=== PATIENT | female | born 1980 | race Caucasian/White ===

== ENCOUNTER → 2017-02-02 | Outpatient (CLI) | payer BC ==
--- NOTE | 2017-02-03 13:34 | MM ---
Reason for exam: screening (asymptomatic). Last mammogram was performed 6 years and 8 months ago. History: Patient had first child at age 33. Taking hormonal contraceptives for 5 years beginning at age 17. Physical Findings: A clinical breast exam by your physician is recommended on an annual basis and results should be correlated with mammographic findings. MG Screening Mammo w CAD Bilateral CC, MLO, and XCCL view(s) were taken. Prior study comparison: June 01, 2010, bilateral diagnostic digital mammog. The breast tissue is extremely dense which could obscure a lesion on mammography. There is no discrete abnormality. No significant changes when compared with prior studies. ASSESSMENT: Negative, BI-RAD 1 RECOMMENDATION: Routine screening mammogram of both breasts at age 40.
== END | disposition home or self-care (01) ==
LOC: RADMAMWWP 15:16
PROVIDERS: ATTEND Family Medicine
DX: Z12.31 Encounter for screening mammogram for malignant neoplasm of breast (principal)

== ENCOUNTER → 2019-10-11 | Outpatient (CLI) | payer BC ==
[2019-10-11 17:07] LABS: Basophils # (A) 0.1 k/uL (0-0.2); Basophils % (A) 1 %; Eosinophils # (A) 0.3 k/uL (0-0.7); Eosinophils % (A) 2 %; HCT 44.8 % (34.0-46.0); HGB 14.5 gm/dL (11.4-16.0); Lymphocytes % (A) 41 %; MCH 30.6 pg (25.0-35.0); MCHC 32.3 g/dL (31.0-37.0); MCV 94.7 fL (80.0-100.0); Mean Platelet Volume 8.4; Monocytes # (A) 0.8 k/uL (0-1.0); Monocytes % (A) 6 %; Neutrophils # (A) 5.6 k/uL (1.3-7.7); Neutrophils % (A) 46 %; Platelet Count 262 k/uL (150-450); RBC 4.73 m/uL (3.80-5.40); RDW 12.4 % (11.5-15.5); WBC 12.2 k/uL (3.8-10.6)
== END | disposition home or self-care (01) ==
LOC: LABPAT 16:46
PROVIDERS: ATTEND Obstetrics & Gynecology
DX: Z01.812 Encounter for preprocedural laboratory examination (principal); N93.8 Other specified abnormal uterine and vaginal bleeding
CPT/HCPCS: 85025

== ENCOUNTER 2019-10-16 06:26 | Day surgery (SDC) | payer BC ==
[2019-10-12 12:01] VITALS: BMI 18.6
[~2019-10-16 06:26] MED LIST: DEXAMETHASONE SOD PHOSPHATE 10 MG/ML 1 ML VIAL IV ONE; LACTATED RINGERS 1,000 ML IV SCH; LIDOCAINE 1% 20 ML VIAL (10MG/ML) FOR IV START INTRADERMA PRN; Pre Op ABX Message 1 EACH MISC MISCELLANE ONE; SCOPOLAMINE 1.5MG/72HR PATCH TRANSDERM ONE
[2019-10-16] MEDS: ONDANSETRON 4 MG/2 ML VIAL IVP ONE ×2 (07:00→08:32)
[2019-10-16] MEDS ORDERED: PROPOFOL 10 MG/ML 20 ML VIAL IV ONE (07:20)
[2019-10-16] MEDS ORDERED: fentaNYL (PF) 50 MCG/ML 2 ML AMP ONE (07:20)
[2019-10-16] MEDS ORDERED: KETOROLAC 30 MG/ML 1 ML VIAL ONE (07:20)
[2019-10-16] MEDS ORDERED: MIDAZOLAM 2 MG/2 ML VIAL ONE (07:20)
[2019-10-16] MEDS ORDERED: LIDOCAINE 1% INJ 10MG/ML (20 ML MDV) ONE (07:20)
[2019-10-16] MEDS ORDERED: LIDOCAINE 1%-EPI 1:100,000 20 ML VIAL SQ ONE (07:47)
--- NOTE | 2019-10-16 08:07 | P.OP ---
Date of Procedure: 10/16/19 Preoperative Diagnosis: Menometrorrhagia Postoperative Diagnosis: Same Procedure(s) Performed: Diagnostic hysteroscopy and NovaSure endometrial ablation Anesthesia: MAC Surgeon: Amrita Aleman Estimated Blood Loss (ml): 5 IV fluids (ml): 400 Urine output (ml): 10 Pathology: none sent Condition: stable Disposition: PACU Operative Findings: Normal intrauterine cavity with no gross intracavitary lesions noted. Description of Procedure: After the patient and her were met in the preoperative holding area and all questions were answered, she was taken to the operating room where anesthetic was administered without incident. Appropriate timeout procedure was undertaken. She was positioned, prepped and draped in the dorsal lithotomy position. Bladder was drained for a scant amount of clear urine. Speculum was placed in the vagina and the cervix was grasped anteriorly with a single-tooth tenaculum. Paracervical block with lidocaine plus epinephrine was placed. The uterus was sounded to 8 cm. The cervix was sequentially dilated to allow for passage of the diagnostic hysteroscope. The hysteroscope was introduced and the cavity was inspected. There was moderate amount of clot and debris. The hysteroscope was removed and the cervix was further dilated to allow for passage of the NovaSure ablation device. The device was inserted with a cavity length of 4.5 cm and a width of 3.6 cm. The cavity assessment test was passed. The device was enabled for a treatment cycle of 80 seconds with a power of 89 W. Following cessation of the treatment cycle the device was removed. The hysteroscope was reintroduced and complete desiccation of the endometrium was appreciated. Instruments were then removed. The cervix was observed and no active bleeding was noted. Speculum was removed. Patient was awoken from anesthetic and transported recovery area in stable condition. All counts reported to me as correct.
[2019-10-16 08:15] VITALS: TEMP 97.5
[2019-10-16] MEDS: HYDROmorphone 0.5 MG/0.5 ML SYRINGE IVP PRN ×2 (08:34→08:40)
[2019-10-16] MEDS ORDERED: SCOPOLAMINE 1.5MG/72HR PATCH TRANSDERM ONE (09:21)
[2019-10-16] MEDS ORDERED: hydrALAZINE HCL 20 MG/ML 1 ML VIAL IVP ONE (10:25)
[2019-10-16 11:04] VITALS: BP 146/93; PULSE 94; RESP 16
== END 2019-10-16 11:13 | disposition home or self-care (01) ==
LOC: OR 06:26
PROVIDERS: ATTEND Obstetrics & Gynecology
DX: N92.1 Excessive and frequent menstruation with irregular cycle (principal); N93.8 Other specified abnormal uterine and vaginal bleeding; Z79.899 Other long term (current) drug therapy; F41.9 Anxiety disorder, unspecified; F32.9 Major depressive disorder, single episode, unspecified; K58.9 Irritable bowel syndrome, unspecified; E73.9 Lactose intolerance, unspecified; Z87.42 Personal history of other diseases of the female genital tract; Z83.3 Family history of diabetes mellitus; F17.210 Nicotine dependence, cigarettes, uncomplicated
CPT/HCPCS: 81025; 58563; J2250; J0360; J1100; J2405; J2001; J3010; J1885; J2704; J1170

== ENCOUNTER → 2020-05-19 | Outpatient (CLI) | payer BC | END | disposition home or self-care (01) | LOC: LABWHC1 14:44 | PROVIDERS: ATTEND Family Medicine | DX: R50.9 Fever, unspecified (principal); R11.0 Nausea; R07.89 Other chest pain | CPT/HCPCS: U0003; C9803 ==

== ENCOUNTER 2022-07-17 09:12 | Observation (INO) | payer BC ==
[2022-07-17] MEDS ORDERED: ONDANSETRON 4 MG/2 ML VIAL IVP STA (09:43)
[2022-07-17] MEDS ORDERED: MORPHINE SULFATE 2 MG/ML SYRINGE IVP STA ×2 (09:43→11:36)
[2022-07-17] MEDS ORDERED: KETOROLAC 15 MG/ML 1 ML VIAL IVP STA (09:43)
[2022-07-17] MEDS ORDERED: SODIUM CHLORIDE 0.9% 1,000 ML IV STA (09:43)
[2022-07-17] MEDS ORDERED: DICYCLOMINE 10 MG/ML 2 ML AMP IM STA (09:52)
[2022-07-17 10:27] LABS: Basophils % (A) 0 %; Eosinophils # (A) 0.1 k/uL (0-0.7); Eosinophils % (A) 0 %; HGB 15.7 gm/dL (11.4-16.0); Lymphocytes # (A) 1.1 k/uL (1.0-4.8); Lymphocytes % (A) 5 %; MCH 31.4 pg (25.0-35.0); MCHC 32.8 g/dL (31.0-37.0); MCV 95.7 fL (80.0-100.0); Mean Platelet Volume 8.8; Monocytes # (A) 0.8 k/uL (0-1.0); Monocytes % (A) 4 %; Neutrophils # (A) 18.5 k/uL (1.3-7.7); Neutrophils % (A) 90 %; Platelet Count 308 k/uL (150-450); RBC 5.02 m/uL (3.80-5.40); RDW 11.9 % (11.5-15.5); WBC 20.6 k/uL (3.8-10.6)
--- NOTE | 2022-07-17 10:29 | ED ---
Abdominal Pain HPI - General Chief Complaint: Abdominal Pain Stated Complaint: Abd Pain, Vomiting Time Seen by Provider: 07/17/22 09:43 Source: patient, RN notes reviewed Mode of arrival: ambulatory Limitations: no limitations - History of Present Illness Initial Comments: This is a 41-year-old female who presents to the emergency department for abdominal pain that began last night. The abdominal pain is described as being around the umbilicus. States that when the pain occurred initially, it improved following a bowel movement. It then returned, and was worse, especially after eating. She has had multiple episodes of nausea and vomiting as well. States that she is worried that she may have a kidney stone, she has a history of kidney stones, and states that she has had severe UTIs that have led to hospital admissions in the past. Denies any fevers, chills, sore throat, cough, dyspnea, chest pain, palpitations, diarrhea, back pain, or headaches. MD Complaint: abdominal pain Onset/Timin -: days(s) Location: periumbilical Associated Symptoms: nausea, vomiting - Related Data Home Medications Medication Instructions Recorded Confirmed Multivitamins, Thera [Multivitamin 1 tab PO DAILY 10/12/19 07/17/22 (formulary)] Cranberry Fruit Extract [Cranberry] 500 mg PO DAILY 07/17/22 07/17/22 Allergies Allergy/AdvReac Type Severity Reaction Status Date / Time No Known Allergies Allergy Verified 07/17/22 15:23 Review of Systems ROS Statement: Those systems with pertinent positive or pertinent negative responses have been documented in the HPI. ROS Other: All systems not noted in ROS Statement are negative. Past Medical History Past Medical History: No Reported History History of Any Multi-Drug Resistant Organisms: None Reported Past Surgical History: Section, Ear Surgery, Tonsillectomy Additional Past Surgical History / Comment(s): Left breast lumpectomy Past Anesthesia/Blood Transfusion Reactions: No Reported Reaction Past Psychological History: No Psychological Hx Reported Smoking Status: Current every day smoker Past Alcohol Use History: Occasional Past Drug Use History: None Reported - Past Family History Father Family Medical History: Diabetes Mellitus General Exam Limitations: no limitations General appearance: alert, in distress Head exam: Present: atraumatic, normocephalic, normal inspection Respiratory exam: Present: normal lung sounds bilaterally. Absent: respiratory distress, wheezes, rales, rhonchi, stridor Cardiovascular Exam: Present: regular rate, normal rhythm, normal heart sounds. Absent: systolic murmur, diastolic murmur, rubs, gallop, clicks GI/Abdominal exam: Present: soft, tenderness (Periumbilical), normal bowel sounds. Absent: distended Back exam: Present: CVA tenderness (R). Absent: CVA tenderness (L) Neurological exam: Present: alert, oriented X3, CN II-XII intact Psychiatric exam: Present: normal affect, normal mood Skin exam: Present: warm, dry, intact, normal color. Absent: rash Course Vital Signs 07/17/22 07/17/22 07/17/22 09:26 11:42 12:31 Temperature 98.1 F Pulse Rate 83 92 Respiratory 20 22 Rate Blood Pressure 140/83 170/100 124/79 O2 Sat by Pulse 100 100 Oximetry 07/17/22 15:27 Temperature Pulse Rate 79 Respiratory 18 Rate Blood Pressure 152/95 O2 Sat by Pulse 100 Oximetry Medical Decision Making - Medical Decision Making This is a 41-year-old female who presents to the emergency department for abdominal pain. Lab work reveals leukocytosis. Computed tomography scan of the abdomen and pelvis reveals a 6 mm stone at the right UVJ and moderate hydroureteronephrosis. I spoke with ED attending, Dr. Velásquez, who states that there is concern for an infected stone given the significantly elevated WBC. She was given 1g of Ceftriaxone and Flomax in the emergency department and started on maintenance fluids. Patient admitted to medicine with urology consult. This case was discussed in detail with the attending ED physician. Presentation, findings, and treatment plan discussed in detail as well. - Lab Data Result diagrams: 07/17/22 10:02 07/17/22 10:02 Lab Results 07/17/22 07/17/22 07/17/22 Range/Units 10:02 10:02 10:02 WBC 20.6 H (3.8-10.6) k/uL RBC 5.02 (3.80-5.40) m/uL Hgb 15.7 (11.4-16.0) gm/dL Hct 48.0 H (34.0-46.0) % MCV 95.7 (80.0-100.0) fL MCH 31.4 (25.0-35.0) pg MCHC 32.8 (31.0-37.0) g/dL RDW 11.9 (11.5-15.5) % Plt Count 308 (150-450) k/uL MPV 8.8 Neutrophils % 90 % Lymphocytes % 5 % Monocytes % 4 % Eosinophils % 0 % Basophils % 0 % Neutrophils # 18.5 H (1.3-7.7) k/uL Lymphocytes # 1.1 (1.0-4.8) k/uL Monocytes # 0.8 (0-1.0) k/uL Eosinophils # 0.1 (0-0.7) k/uL Basophils # 0.0 (0-0.2) k/uL Sodium (137-145) mmol/L Potassium (3.5-5.1) mmol/L Chloride (98-107) mmol/L Carbon Dioxide (22-30) mmol/L Anion Gap mmol/L BUN (7-17) mg/dL Creatinine (0.52-1.04) mg/dL Est GFR (CKD-EPI)AfAm (>60 ml/min/1.73 sqM) Est GFR (CKD-EPI)NonAf (>60 ml/min/1.73 sqM) Glucose (74-99) mg/dL Calcium (8.4-10.2) mg/dL Total Bilirubin (0.2-1.3) mg/dL AST (14-36) U/L ALT (4-34) U/L Alkaline Phosphatase (38-126) U/L Troponin I (0.000-0.034) ng/mL Total Protein (6.3-8.2) g/dL Albumin (3.5-5.0) g/dL Amylase (30-110) U/L Lipase (23-300) U/L Urine Color Red Urine Appearance Cloudy H (Clear) Urine pH 6.0 (5.0-8.0) Ur Specific [place] 1.023 (1.001-1.035) Urine Protein 1+ H (Negative) Urine Glucose (UA) Negative (Negative) Urine Ketones 1+ H (Negative) Urine Blood Large H (Negative) Urine Nitrite Negative (Negative) Urine Bilirubin Negative (Negative) Urine Urobilinogen <2.0 (<2.0) mg/dL Ur Leukocyte Esterase Moderate H (Negative) Urine RBC >182 H (0-5) /hpf Urine WBC 47 H (0-5) /hpf Ur Squamous Epith Cells 2 (0-4) /hpf Urine Bacteria Rare H (None) /hpf Urine Mucus Many H (None) /hpf Urine HCG, Qual Not Detected (Not Detectd) 07/17/22 07/17/22 Range/Units 10:02 10:02 WBC (3.8-10.6) k/uL RBC (3.80-5.40) m/uL Hgb (11.4-16.0) gm/dL Hct (34.0-46.0) % MCV (80.0-100.0) fL MCH (25.0-35.0) pg MCHC (31.0-37.0) g/dL RDW (11.5-15.5) % Plt Count (150-450) k/uL MPV Neutrophils % % Lymphocytes % % Monocytes % % Eosinophils % % Basophils % % Neutrophils # (1.3-7.7) k/uL Lymphocytes # (1.0-4.8) k/uL Monocytes # (0-1.0) k/uL Eosinophils # (0-0.7) k/uL Basophils # (0-0.2) k/uL Sodium 142 (137-145) mmol/L Potassium 3.7 (3.5-5.1) mmol/L Chloride 106 (98-107) mmol/L Carbon Dioxide 26 (22-30) mmol/L Anion Gap 10 mmol/L BUN 17 (7-17) mg/dL Creatinine 0.65 (0.52-1.04) mg/dL Est GFR (CKD-EPI)AfAm >90 (>60 ml/min/1.73 sqM) Est GFR (CKD-EPI)NonAf >90 (>60 ml/min/1.73 sqM) Glucose 133 H (74-99) mg/dL Calcium 9.6 (8.4-10.2) mg/dL Total Bilirubin 0.8 (0.2-1.3) mg/dL AST 28 (14-36) U/L ALT 17 (4-34) U/L Alkaline Phosphatase 99 (38-126) U/L Troponin I <0.012 (0.000-0.034) ng/mL Total Protein 7.3 (6.3-8.2) g/dL Albumin 5.0 (3.5-5.0) g/dL Amylase 72 (30-110) U/L Lipase 60 (23-300) U/L Urine Color Urine Appearance (Clear) Urine pH (5.0-8.0) Ur Specific [place] (1.001-1.035) Urine Protein (Negative) Urine Glucose (UA) (Negative) Urine Ketones (Negative) Urine Blood (Negative) Urine Nitrite (Negative) Urine Bilirubin (Negative) Urine Urobilinogen (<2.0) mg/dL Ur Leukocyte Esterase (Negative) Urine RBC (0-5) /hpf Urine WBC (0-5) /hpf Ur Squamous Epith Cells (0-4) /hpf Urine Bacteria (None) /hpf Urine Mucus (None) /hpf Urine HCG, Qual (Not Detectd) - Radiology Data Radiology results: report reviewed, image reviewed Disposition Clinical Impression: Hydroureteronephrosis, Calculus of ureterovesical junction (UVJ) Disposition: ADMITTED IP TO THIS HOSP
[2022-07-17 10:37] LABS: ALT 17 U/L (4-34); AST 28 U/L (14-36); African American GFR (CKD) >90 (>60 ml/min/1.73 sqM); Alkaline Phosphatase 99 U/L (38-126); Amylase 72 U/L (30-110); Anion Gap 10 mmol/L; Blood Urea Nitrogen 17 mg/dL (7-17); Calcium 9.6 mg/dL (8.4-10.2); Carbon Dioxide 26 mmol/L (22-30); Chloride 106 mmol/L (98-107); Glucose 133 mg/dL (74-99); Lipase 60 U/L (23-300); Non-African American GFR(CKD) >90 (>60 ml/min/1.73 sqM); Potassium 3.7 mmol/L (3.5-5.1); Sodium 142 mmol/L (137-145); Total Bilirubin 0.8 mg/dL (0.2-1.3); Total Protein 7.3 g/dL (6.3-8.2)
[2022-07-17 11:32] LABS: Appearance,Urine Cloudy (Clear); Bacteria,Urine Rare /hpf; Bilirubin,Urine Negative (Negative); Blood,Urine Large (Negative); Color,Urine Red; Glucose,Urine (UA) Negative (Negative); Ketones,Urine 1+ (Negative); Leukocyte Esterase,Urine Moderate (Negative); Mucus,Urine Many /hpf; Nitrite,Urine Negative (Negative); Protein,Urine 1+ (Negative); RBC,Urine >182 /hpf (0-5); Specific Gravity,Urine 1.023 (1.001-1.035); Squamous Epithelial Cell,Urine 2 /hpf (0-4); Urobilinogen,Urine <2.0 mg/dL (<2.0); WBC,Urine 47 /hpf (0-5)
--- NOTE | 2022-07-17 11:40 | CT ---
EXAMINATION TYPE: CT abdomen pelvis w con DATE OF EXAM: 07/17/2022 COMPARISON: None HISTORY: periumbilical pain and N/V CT DLP: 506.1 mGycm CONTRAST: CT scan of the abdomen and pelvis is performed without Oral Contrast and with IV Contrast, patient in jected with 100 mL of Isovue 300. FINDINGS: LUNG BASES-: No visible nodule. No infiltrate. LIVER/GB: No calcified gallstones. No space occupying hepatic lesion. Biliary tree is of normal ca liber. PANCREAS: No inflammation. No distinct mass. SPLEEN: No splenic enlargement. No lesion seen. ADRENALS: No nodule. No thickening. KIDNEYS/BLADDER: Moderate right-sided hydroureteronephrosis secondary to a 6 mm calculus at the right UVJ. Additional 3 mm nonobstructing calculus lower pole right kidney. Small amount of fluid adjacent to the right kidney at its lower pole. No distinct renal mass. Urinary bladder grossly unremarkable . BOWEL: Normal appendix. Normal bowel caliber. No inflammation. GENITAL ORGANS: No gross abnormality. LYMPH NODES: No greater than 1cm abdominal or pelvic lymph nodes are appreciated. AORTA: No significant abnormality. OSSEOUS STRUCTURES: No significant abnormality is seen. OTHER: No significant additional abnormality is seen. IMPRESSION: 1. Moderate right-sided hydroureteronephrosis secondary to a 6 mm calculus at the right UVJ.
[2022-07-17] MEDS ORDERED: ONDANSETRON ODT 4 MG TAB PO STA (12:37)
[2022-07-17] MEDS ORDERED: IBUPROFEN 600 MG TAB PO STA (12:37)
[2022-07-17] MEDS ORDERED: TAMSULOSIN 0.4 MG CAP.ER.24H PO STA (12:37)
[2022-07-17] MEDS ORDERED: cefTRIAXone IN SWFI 1,000 MG/10 ML SYRINGE IVP STA (13:02)
[2022-07-17] MEDS ORDERED: NALOXONE 0.4 MG/ML 1 ML VIAL IV PRN (14:06)
[2022-07-17] MEDS ORDERED: ONDANSETRON 4 MG/2 ML VIAL IVP PRN (14:06)
[2022-07-17] MEDS ORDERED: ACETAMINOPHEN TAB 325 MG TAB PO PRN (14:06)
[2022-07-17] MEDS ORDERED: KETOROLAC 15 MG/ML 1 ML VIAL IVP PRN (14:06)
[2022-07-17] MEDS ORDERED: IBUPROFEN 400 MG TAB PO PRN (14:06)
[2022-07-17] MEDS: SODIUM CHLORIDE 0.9% 1,000 ML IV SCH (15:25)
[2022-07-17] MEDS: HEPARIN SODIUM,PORCINE/PF 5,000 UNIT/0.5 ML SYRINGE SQ SCH (19:41)
[2022-07-17] MEDS: FAMOTIDINE 20 MG TAB PO SCH (19:42)
[2022-07-17] MEDS: MORPHINE SULFATE 2 MG/ML SYRINGE IV PRN (21:53)
--- NOTE | 2022-07-18 00:21 | P.HPIM ---
History of Present Illness H&P Date: 07/17/22 Chief Complaint: Abdominal pain Patient is a 41-year-old male with no significant past medical history presents to ER with complaints of nausea vomiting abdominal pain. Patient states that she started having right flank pain on around 4 AM. Since then patient has been having on and off episodes of nausea and vomiting and also abdominal pain around the umbilical area. Patient has been having multiple episodes of nausea vomiting and presented to ER. No prior history of renal stones. Patient had prior UTI and hospital admission about a year ago. Patient does smoke on daily basis currently. CT of the abdomen pelvis showed moderate right-sided hydronephrosis secondary to 6 mm calculus at the right UVJ Laboratory data showed WBC 20.6 hemoglobin 13.7 and platelets 308 Sodium 142 potassium 3.7 chloride 106 bicarb is 26 BUN 17 and creatinine 0.65 and blood sugar is 133 Urinalysis showed cloudy with 1+ protein 1+ ketones and large blood blood moderate leukocyte esterase with elevated RBCs and WBCs. Squamous epithelial cells 2. Review of Systems Constitutional: Patient denies any fever or chills . no Generalized weakness. Abdomen: Patient is complaining of nausea vomiting and abdominal pain. Right flank pain. Cardiovascular: Patient denies any chest pain or short of breath no palpitations. Respiratory: patient denied any cough . no sputum production. No shortness of breath Neurologic: Patient denied any numbness or tingling headache. Musculoskeletal: Patient denies any complaints of joint swelling or deformity. Skin: Negative Psychiatric: Negative Endocrine: No heat or cold intolerance. No recent weight gain. Genitourinary: No dysuria or hematuria. All other 14 point ROS negative except the above Past Medical History Past Medical History: No Reported History History of Any Multi-Drug Resistant Organisms: None Reported Past Surgical History: Section, Ear Surgery, Tonsillectomy Additional Past Surgical History / Comment(s): Left breast lumpectomy Past Anesthesia/Blood Transfusion Reactions: No Reported Reaction Past Psychological History: No Psychological Hx Reported Smoking Status: Current every day smoker Past Alcohol Use History: Occasional Past Drug Use History: None Reported - Past Family History Father Family Medical History: Diabetes Mellitus Medications and Allergies Home Medications Medication Instructions Recorded Confirmed Type Multivitamins, Thera [Multivitamin 1 tab PO DAILY 10/12/19 07/17/22 History (formulary)] Cranberry Fruit Extract [Cranberry] 500 mg PO DAILY 07/17/22 07/17/22 History Allergies Allergy/AdvReac Type Severity Reaction Status Date / Time No Known Allergies Allergy Verified 07/17/22 15:23 Physical Exam Vitals: Vital Signs Temp Pulse Pulse Resp BP BP Pulse Ox 07/17/22 16:05 99.0 F 85 16 155/87 100 07/17/22 15:27 79 18 152/95 100 07/17/22 12:31 124/79 07/17/22 11:42 92 22 170/100 100 07/17/22 09:26 98.1 F 83 20 140/83 100 Intake and Output 07/17/22 07/17/22 07/17/22 06:59 14:59 22:59 Other: Weight 54.431 kg PHYSICAL EXAMINATION: Patient is lying in the bed comfortably, no acute distress, awake alert and or iented.. HEENT: Normocephalic. Neck is supple. Pupils reactive. Nostrils clear. Oral cavity is moist. Neck reveals no JVD, carotid bruits, or thyromegaly. CHEST EXAMINATION: Trachea is central. Symmetrical expansion. Lung [place] clear to auscultation and percussion. CARDIAC: Normal S1, S2 with no gallops. No murmurs ABDOMEN: Soft. Bowel sounds present. Nontender. No organomegaly. No abdominal bruits. Extremities: reveal no edema. No clubbing or cyanosis Neurologically awake, alert, oriented x3 with well-coordinated movements. No focal deficits noted Skin: No rash or skin lesions. Psychiatric: Coperative. Nonsuicidal, Musculoskeletal: No joint swelling or deformity. Normal range of motion. Results CBC & Chem 7: 07/17/22 10:02 07/17/22 10:02 Labs: Abnormal Lab Results - Last 24 Hours (Table) 07/17/22 07/17/22 07/17/22 Range/Units 10:02 10:02 10:02 WBC 20.6 H (3.8-10.6) k/uL Hct 48.0 H (34.0-46.0) % Neutrophils # 18.5 H (1.3-7.7) k/uL Glucose 133 H (74-99) mg/dL Urine Appearance Cloudy H (Clear) Urine Protein 1+ H (Negative) Urine Ketones 1+ H (Negative) Urine Blood Large H (Negative) Ur Leukocyte Esterase Moderate H (Negative) Urine RBC >182 H (0-5) /hpf Urine WBC 47 H (0-5) /hpf Urine Bacteria Rare H (None) /hpf Urine Mucus Many H (None) /hpf Thrombosis Risk Factor Assmnt - DVT/VTE Prophylaxis DVT/VTE Prophylaxis: Pharmacologic Prophylaxis ordered Assessment and Plan Assessment: Right-sided hydronephrosis 3 to 6 mm renal calculus at the UVJ Renal colicky pain secondary to above Acute urinary tract infection Prior history of UTIs Ongoing nicotine addiction DVT prophylaxis with heparin subcu Plan: Patient will be continued on IV hydration pain management with morphine and continue with IV antibiotics in the form of ceftriaxone. Follow-up urine culture report. symptomatic management for nausea and vomiting. Urology was consulted for evaluation of the stone and continue to follow closely. Smoking cessation has been counseled extensively. Time with Patient: Greater than 30
[2022-07-18] MEDS: SODIUM CHLORIDE 0.9% 1,000 ML IV SCH ×2 (05:57→18:10)
[2022-07-18] MEDS: MORPHINE SULFATE 2 MG/ML SYRINGE IV PRN ×4 (07:39→20:41)
[2022-07-18] MEDS: HEPARIN SODIUM,PORCINE/PF 5,000 UNIT/0.5 ML SYRINGE SQ SCH ×2 (09:10→20:41)
[2022-07-18] MEDS: FAMOTIDINE 20 MG TAB PO SCH ×2 (09:10→20:41)
[2022-07-18] MEDS: MULTIVITAMINS, THERA 1 EACH TAB PO SCH (09:10)
[2022-07-18 11:08] LABS: African American GFR (CKD) 131.2 (60.0-200.0); Anion Gap 9.1 mmol/L (10.00-18.00); BUN/Creat Ratio 20.5 Ratio (12.00-20.00); Blood Urea Nitrogen 12.3 mg/dL (9.0-27.0); Calcium 8.7 mg/dL (8.7-10.3); Carbon Dioxide 23.9 mmol/L (20.0-27.5); Non-African American GFR(CKD) 113.2 (60.0-200.0); Potassium 4.1 mmol/L (3.5-5.5)
[2022-07-18 11:10] LABS: Basophils # (A) 0.08 X 10*3/uL (0.00-0.10); Basophils % (A) 0.8 %; HCT 44.2 % (37.2-46.3); HGB 14.6 g/dL (12.0-15.0); Immature Grans, Automated 0.2 %; Lymphocytes # (A) 2.63 X 10*3/uL (0.90-5.00); Lymphocytes % (A) 27.6 %; MCH 31.9 pg (27.0-32.0); MCV 96.7 fL (80.0-97.0); Mean Platelet Volume 11.3 fL (9.5-12.2); Monocytes # (A) 0.82 X 10*3/uL (0.20-1.00); Monocytes % (A) 8.6 %; NRBC Per 100 WBC 0 /100 WBCS (0.0-0.0); Neutrophils # (A) 5.89 X 10*3/uL (1.80-7.70); Neutrophils % (A) 61.8 %; Platelet Count 291 X 10*3/uL (140-440); RBC 4.57 X 10*6/uL (4.10-5.20); RDW 12.4 % (11.5-14.5); WBC 9.54 X 10*3/uL (4.50-10.00)
--- NOTE | 2022-07-18 11:51 | P.GSCN ---
History of Present Illness Consult date: 07/18/22 Reason for Consult: Right ureteral stone, hydronephrosis History of present illness: This is a 41-year-old female with history of a 6 right UVJ. She's been in the hospital secondary to pain from her kidney stone. Indicates pain was initially associated with nausea. Denies any dysuria or gross hematuria. This morning she still continues to have lower abdominal pain, and significant bladder spasms secondary to her stone. Indicates that her nausea has resolved. Denies any fevers or chills. No previous history of kidney stones, no known family history of kidney stones. On presentation she underwent a CT scan which showed evidence of a 6 mm stone in the UVJ with hydronephrosis. She did have leukocytosis at presentation a 20.6, which resolved this a.m. Her urine culture shows no growth Review of Systems - Constitutional Denies chills, Denies fever - EENT Ears, nose, mouth and throat: Denies dysphagia - Cardiovascular Denies chest pain, Denies shortness of breath - Respiratory Denies cough, Denies 7 - Gastrointestinal Reports abdominal pain, Reports nausea, Denies vomiting - Genitourinary Genitourinary: Reports flank pain, Reports kidney stones, Denies dysuria, Denies hematuria - Neurological Denies headaches, Denies syncope Past Medical History Past Medical History: No Reported History History of Any Multi-Drug Resistant Organisms: None Reported Past Surgical History: Section, Ear Surgery, Tonsillectomy Additional Past Surgical History / Comment(s): Left breast lumpectomy Past Anesthesia/Blood Transfusion Reactions: No Reported Reaction Past Psychological History: No Psychological Hx Reported Smoking Status: Current every day smoker Past Alcohol Use History: Occasional Past Drug Use History: None Reported - Past Family History Father Family Medical History: Diabetes Mellitus Medications and Allergies Home Medications Medication Instructions Recorded Confirmed Type Multivitamins, Thera [Multivitamin 1 tab PO DAILY 10/12/19 07/17/22 History (formulary)] Cranberry Fruit Extract [Cranberry] 500 mg PO DAILY 07/17/22 07/17/22 History Allergies Allergy/AdvReac Type Severity Reaction Status Date / Time No Known Allergies Allergy Verified 07/17/22 15:23 Surgical - Exam Vital Signs Temp Pulse Resp BP Pulse Ox 98.1 F 83 20 140/83 100 07/17/22 09:26 07/17/22 09:26 07/17/22 09:26 07/17/22 09:26 07/17/22 09:26 - General no distress, moderate pain - Eyes normal ocular movement, no pale - ENT normal nares, normal mucosa - Respiratory normal expansion, normal respiratory effort - Abdomen Abdomen: soft, tender (lower quadrant ), no rebound, no distended - Psychiatric oriented to time, oriented to person, oriented to place Results - Labs 07/18/22 07:27 07/18/22 07:27 Abnormal Lab Results - Last 24 Hours (Table) 07/18/22 Range/Units 07:27 Anion Gap 9.10 L (10.00-18.00) mmol/L BUN/Creatinine Ratio 20.50 H (12.00-20.00) Ratio Microbiology - Last 24 Hours (Table) 07/17/22 10:02 Urine Culture - Final Urine,Voided Diabetes panel 07/18/22 Range/Units 07:27 Sodium 138 (135-145) mmol/L Potassium 4.1 (3.5-5.5) mmol/L Chloride 105 (96-109) mmol/L Carbon Dioxide 23.9 (20.0-27.5) mmol/L BUN 12.3 (9.0-27.0) mg/dL Creatinine 0.6 (0.6-1.5) mg/dL Glucose 92 (70-110) mg/dL Calcium 8.7 (8.7-10.3) mg/dL Calcium panel 07/18/22 Range/Units 07:27 Calcium 8.7 (8.7-10.3) mg/dL Pituitary panel 07/18/22 Range/Units 07:27 Sodium 138 (135-145) mmol/L Potassium 4.1 (3.5-5.5) mmol/L Chloride 105 (96-109) mmol/L Carbon Dioxide 23.9 (20.0-27.5) mmol/L BUN 12.3 (9.0-27.0) mg/dL Creatinine 0.6 (0.6-1.5) mg/dL Glucose 92 (70-110) mg/dL Calcium 8.7 (8.7-10.3) mg/dL Adrenal panel 07/18/22 Range/Units 07:27 Sodium 138 (135-145) mmol/L Potassium 4.1 (3.5-5.5) mmol/L Chloride 105 (96-109) mmol/L Carbon Dioxide 23.9 (20.0-27.5) mmol/L BUN 12.3 (9.0-27.0) mg/dL Creatinine 0.6 (0.6-1.5) mg/dL Glucose 92 (70-110) mg/dL Calcium 8.7 (8.7-10.3) mg/dL - Imaging CT scan - abdomen: report reviewed, image reviewed (6 mm stone at the UVJ right- sided hydronephrosis) Assessment and Plan Assessment: This is a 41-year-old female with history of a 6 mm right-sided UVJ, she is symptomatic from her stone. This am still having pain. Discussed with her given the persistent pain the option of right-sided ureteroscopy with laser. Discussed risk and benefit in of the surgery detail. She agreed to proceed -Nothing by mouth past midnight -OR for right-sided ureteroscopy, holmium laser lithotripsy, stone basketing and possible stent insertion
[2022-07-18] MEDS: KETOROLAC 15 MG/ML 1 ML VIAL IVP SCH ×2 (12:28→18:09)
[2022-07-18] MEDS: OXYBUTYNIN 10 MG TAB.ER.24 PO SCH (12:29)
[2022-07-18] MEDS: amLODIPine 2.5 MG TAB PO SCH (16:37)
[2022-07-19] MEDS: KETOROLAC 15 MG/ML 1 ML VIAL IVP SCH ×5 (01:02→23:24)
--- NOTE | 2022-07-19 02:43 | P.PN ---
Subjective Progress Note Date: 07/18/22 Patient is a 41-year-old male with no significant past medical history presents to ER with complaints of nausea vomiting abdominal pain. Patient states that she started having right flank pain on around 4 AM. Since then patient has been having on and off episodes of nausea and vomiting and also abdominal pain around the umbilical area. Patient has been having multiple episodes of nausea vomiting and presented to ER. No prior history of renal stones. Patient had prior UTI and hospital admission about a year ago. Patient does smoke on daily basis currently. CT of the abdomen pelvis showed moderate right-sided hydronephrosis secondary to 6 mm calculus at the right UVJ Laboratory data showed WBC 20.6 hemoglobin 13.7 and platelets 308 Sodium 142 potassium 3.7 chloride 106 bicarb is 26 BUN 17 and creatinine 0.65 and blood sugar is 133 Urinalysis showed cloudy with 1+ protein 1+ ketones and large blood blood moderate leukocyte esterase with elevated RBCs and WBCs. Squamous epithelial cells 2. 07/18/2022 Patient is still complaints of right flank pain. Denies any complaints of dys uria or hematuria. Afebrile. No nausea vomiting abdominal pain or diarrhea. Patient is maintained on antibiotics at home ceftriaxone. Leukocytosis resolved. Patient was seen by urology and is planning for right-sided ureteroscopy and laser lithotripsy and possible stent placement. Scheduled for tomorrow. Continued on pain management. -Current medications reviewed. Objective - Vital Signs Vital signs: Vital Signs Temp 98.4 F 07/18/22 15:00 Pulse 74 07/18/22 15:00 Resp 16 07/18/22 15:00 BP 168/93 07/18/22 15:00 Pulse Ox 100 07/18/22 15:00 FiO2 Intake & Output 07/17/22 07/18/22 07/18/22 18:59 06:59 18:59 Intake Total 180 1500 118 Balance 180 1500 118 Weight 54.431 kg Intake: Intake, IV Titration 1000 Amount Sodium Chloride 0.9% 1, 1000 000 ml @ 75 mls/hr IV . [id number] [facility] Rx#:[id number] Oral 180 500 118 Other: Voiding Method Toilet Toilet # Voids 3 # Bowel Movements 1 - Exam PHYSICAL EXAMINATION: Patient is lying in the bed comfortably, no acute distress, awake alert and oriented.. HEENT: Normocephalic. Neck is supple. Pupils reactive. Nostrils clear. Oral cavity is moist. Neck reveals no JVD, carotid bruits, or thyromegaly. CHEST EXAMINATION: Trachea is central. Symmetrical expansion. Lung venegas clear to auscultation and percussion. CARDIAC: Normal S1, S2 with no gallops. No murmurs ABDOMEN: Soft. Bowel sounds present. Nontender. No organomegaly. No abdominal bruits. Right flank tenderness. Extremities: reveal no edema. No clubbing or cyanosis Neurologically awake, alert, oriented x3 with well-coordinated movements. No focal deficits noted Skin: No rash or skin lesions. Psychiatric: Coperative. Nonsuicidal, Musculoskeletal: No joint swelling or deformity. Normal range of motion. - Labs CBC & Chem 7: 07/18/22 07:27 07/18/22 07:27 Labs: Abnormal Lab Results - Last 24 Hours (Table) 07/18/22 Range/Units 07:27 Anion Gap 9.10 L (10.00-18.00) mmol/L BUN/Creatinine Ratio 20.50 H (12.00-20.00) Ratio Microbiology - Last 24 Hours (Table) 07/17/22 10:02 Urine Culture - Final Urine,Voided Assessment and Plan Assessment: Right-sided hydronephrosis 3 to 6 mm renal calculus at the UVJ Renal colicky pain secondary to above Acute urinary tract infection Prior history of UTIs Ongoing nicotine addiction DVT prophylaxis with heparin subcu Plan: Patient will be continued on IV hydration pain management with morphine and continue with IV antibiotics in the form of ceftriaxone. Follow-up urine culture report. symptomatic management for nausea and vomiting. Urology Is planning for or for cystoscopy tomorrow. Leukocytosis resolved. Continue with pain management.. Smoking cessation has been counseled extensively. Time with Patient: Greater than 30
[2022-07-19] MEDS: SODIUM CHLORIDE 0.9% 1,000 ML IV SCH ×2 (05:12→21:11)
[2022-07-19] MEDS: OXYBUTYNIN 10 MG TAB.ER.24 PO SCH (08:32)
[2022-07-19] MEDS: MULTIVITAMINS, THERA 1 EACH TAB PO SCH (08:32)
[2022-07-19] MEDS: FAMOTIDINE 20 MG TAB PO SCH ×2 (08:32→21:07)
[2022-07-19] MEDS: amLODIPine 2.5 MG TAB PO SCH (08:40)
[2022-07-19] MEDS: HEPARIN SODIUM,PORCINE/PF 5,000 UNIT/0.5 ML SYRINGE SQ SCH ×2 (08:40→21:07)
[2022-07-19] MEDS: MORPHINE SULFATE 2 MG/ML SYRINGE IV PRN (11:10)
--- NOTE | 2022-07-19 11:45 | P.PN ---
Subjective Progress Note Date: 07/19/22 Still having pain this morning, denies any fevers or chills Objective - Vital Signs Vital signs: Vital Signs Temp 97.6 F 07/19/22 07:00 Pulse 61 07/19/22 07:00 Resp 14 07/19/22 07:00 BP 144/77 07/19/22 07:00 Pulse Ox 100 07/19/22 07:00 FiO2 Intake & Output 07/18/22 07/19/22 07/19/22 18:59 06:59 18:59 Intake Total 618 Balance 618 Intake: Oral 618 Other: Voiding Method Toilet Toilet Toilet # Voids 3 3 # Bowel Movements 1 - Constitutional General appearance: Present: mild distress - Gastrointestinal General gastrointestinal: Present: soft. Absent: distended - Psychiatric Psychiatric: Present: A&O x's 3 - Labs CBC & Chem 7: 07/18/22 07:27 07/18/22 07:27 Labs: Microbiology - Last 24 Hours (Table) 07/17/22 10:02 Urine Culture - Final Urine,Voided Assessment and Plan Assessment: This is a 41-year-old female with history of a 6 mm right-sided UVJ, she is symptomatic from her stone. This am still having pain. Discussed with her given the persistent pain the option of right-sided ureteroscopy with laser. Discussed risk and benefit in of the surgery detail. She agreed to proceed -OR for right-sided ureteroscopy, holmium laser lithotripsy, stone basketing and possible stent insertion
[2022-07-19] MEDS ORDERED: IV FLUID CONTINUATION 1,000 ML IV ONE (13:26)
[2022-07-19] MEDS ORDERED: DEXAMETHASONE SOD PHOSPHATE 4 MG/ML 1 ML VIAL IV ONE (13:43)
[2022-07-19] MEDS ORDERED: SCOPOLAMINE 1 MG/72 HR PATCH TRANSDERM ONE (13:43)
[2022-07-19] MEDS ORDERED: ONDANSETRON 4 MG/2 ML VIAL IVP ONE (13:43)
[2022-07-19] MEDS ORDERED: PROPOFOL 10 MG/ML 20 ML VIAL IV ONE (14:05)
[2022-07-19] MEDS ORDERED: KETOROLAC 15 MG/ML 1 ML VIAL ONE (14:05)
[2022-07-19] MEDS ORDERED: fentaNYL (PF) 50 MCG/ML 2 ML AMP ONE (14:05)
[2022-07-19] MEDS ORDERED: LIDOCAINE 2% INJ 20 MG/ML (2 ML VIAL) ONE (14:05)
[2022-07-19] MEDS ORDERED: SODIUM CHLORIDE 0.9% 50 ML IV ONE (14:21)
[2022-07-19] MEDS ORDERED: LACTATED RINGERS 1,000 ML IV ONE (14:43)
--- NOTE | 2022-07-19 14:51 | FL ---
EXAMINATION TYPE: FL guidance operating room DATE OF EXAM: 07/19/2022 HISTORY: Fluoroscopy time 1 seconds of fluoroscopy provided. IMPRESSION: 1. Fluoroscopy time.
[2022-07-20] MEDS: KETOROLAC 15 MG/ML 1 ML VIAL IVP SCH (06:22)
[2022-07-20 06:50] VITALS: BP 125/84; PULSE 68; RESP 17; TEMP 97.8
--- NOTE | 2022-07-20 08:23 | P.OP ---
Date of Procedure: 07/19/22 Preoperative Diagnosis: right ureteral stone Postoperative Diagnosis: same Procedure(s) Performed: Cystoscopy,right ureteroscopy, holmium laser stone basketing Implants: none Anesthesia: PAXTONA Surgeon: Beka Lai Estimated Blood Loss (ml): 5 Pathology: other (right ureteral stone) Condition: stable Disposition: PACU Indications for Procedure: This is a 41-year-old female with history of a 6 mm right-sided UVJ, she is symptomatic from her stone. This am still having pain. Discussed with her given the persistent pain the option of right-sided ureteroscopy with laser. Discussed risk and benefit in of the surgery detail. She agreed to proceed Description of Procedure: Patient brought to the operating room, general anesthesia was induced. She was prepped and draped in sterile fashion a placement dorsal lithotomy position. Cystoscopy fitted 21-Maltese sheath was inserted per urethra, cystoscopy was performed showed no abnormality within the bladder. Attention was then carried to the ureter or ureteral orifice. A semirigid ureteroscope was advanced up the right ureteral orifice, stone was encountered at the distal ureter. Using the holmium laser the stone was fragmented into small fragments, sizable fragments were removed using the stone basket. At this time the ureteroscope was advanced past the area of the stone and up to the proximal ureter. No additional stones were identified. Pullback ureteroscopy was performed which showed no injury to the ureter or any ureteral stones. The bladder was emptied at the end of the case. Patient tolerated the procedure well was taken to recovery in stable condition
--- NOTE | 2022-07-20 08:23 | P.PN ---
Subjective Progress Note Date: 07/20/22 Principal diagnosis: Hydroureteronephrosis, calculus at right AV The patient is a 41-year-old female who presented to the emergency department for abdominal pain. Lab work revealed leukocytosis. Computed tomography scan of the abdomen and pelvis revealed a 6 mm stone at the right UVJ and moderate hydroureteronephrosis. She was symptomatic from her stone. Given the persistent pain, she went to the OR on 07/19/22 for a Cystoscopy, right-sided ureteroscopy and lithotripsy with Dr. Lai. Objective - Vital Signs Vital signs: Vital Signs Temp 97.8 F 07/20/22 06:48 Pulse 68 07/20/22 06:48 Resp 17 07/20/22 06:48 BP 125/84 07/20/22 06:48 Pulse Ox 100 07/20/22 06:48 FiO2 Intake & Output 07/19/22 07/20/22 07/20/22 18:59 06:59 18:59 Intake Total 1250 Output Total 5 Balance 1245 Intake: IV 1250 Output: Estimated Blood Loss 5 Other: Voiding Method Toilet Toilet # Voids 1 1 - Exam - Constitutional General appearance: No distress - Gastrointestinal General gastrointestinal: Present: soft. Absent: distended - Psychiatric Psychiatric: Present: A&O x's 3 - Labs CBC & Chem 7: 07/18/22 07:27 07/18/22 07:27 Assessment and Plan Assessment: The patient denies any pain. She states she feels well and is ready to go home. She is voiding without difficulty. Vitals stable. She is afebrile. Plan: - From a urologic stand point, the patient may be discharged home - Increase fluid intake - Pain management - Follow up with Dr. Lai in one week Impression and plan of care have been directed as dictated by the signing physician. Libra Del Castillo nurse practitioner acting as scribe for signing physician. Libra DelC astillo [facility] Palliative Care/Urology Spectralink [email or web address] Email: [email or web address] Time with Patient: Less than 30
[2022-07-20] MEDS: FAMOTIDINE 20 MG TAB PO SCH (08:42)
[2022-07-20] MEDS: OXYBUTYNIN 10 MG TAB.ER.24 PO SCH (08:42)
[2022-07-20] MEDS: HEPARIN SODIUM,PORCINE/PF 5,000 UNIT/0.5 ML SYRINGE SQ SCH (08:42)
[2022-07-20] MEDS: amLODIPine 2.5 MG TAB PO SCH (08:42)
[2022-07-20] MEDS: MULTIVITAMINS, THERA 1 EACH TAB PO SCH (08:42)
[2022-07-20] MEDS: SODIUM CHLORIDE 0.9% 1,000 ML IV SCH (09:01)
--- NOTE | 2022-07-20 09:49 | P.PN ---
Subjective Progress Note Date: 07/19/22 Patient is a 41-year-old male with no significant past medical history presents to ER with complaints of nausea vomiting abdominal pain. Patient states that she started having right flank pain on around 4 AM. Since then patient has been having on and off episodes of nausea and vomiting and also abdominal pain around the umbilical area. Patient has been having multiple episodes of nausea vomiting and presented to ER. No prior history of renal stones. Patient had prior UTI and hospital admission about a year ago. Patient does smoke on daily basis currently. CT of the abdomen pelvis showed moderate right-sided hydronephrosis secondary to 6 mm calculus at the right UVJ Laboratory data showed WBC 20.6 hemoglobin 13.7 and platelets 308 Sodium 142 potassium 3.7 chloride 106 bicarb is 26 BUN 17 and creatinine 0.65 and blood sugar is 133 Urinalysis showed cloudy with 1+ protein 1+ ketones and large blood blood moderate leukocyte esterase with elevated RBCs and WBCs. Squamous epithelial cells 2. 07/18/2022 Patient is still complaints of right flank pain. Denies any complaints of dys uria or hematuria. Afebrile. No nausea vomiting abdominal pain or diarrhea. Patient is maintained on antibiotics at home ceftriaxone. Leukocytosis resolved. Patient was seen by urology and is planning for right-sided ureteroscopy and laser lithotripsy and possible stent placement. Scheduled for tomorrow. Continued on pain management. 07/19/2022 Patient is currently in OR and scheduled for right sided uteroscopy, lithium laser lithotripsy, stone basketing and possible stent with Dr. Lai. Continues on IV ceftriaxone. She is being gently hydrated. Continues with right sided flank pain. Urine culture negative and will continue antibiotics while admitted and patient will not require antibiotics on discharge. Afebrile, hemodynamically stable on room air. Review of Systems. Constitutional: Denied any fatigue denied any fever. Cardio vascular: denied any chest pain, palpitations Gastrointestinal: denied any nausea, vomiting, diarrhea, reports right sided flank pain Pulmonary: Denied any shortness of breath cough Neurologic denied any new focal deficits All inpatient medications were reviewed and appropriate changes in these medications as dictated in the interval history and assessment and plan. PHYSICAL EXAMINATION: Patient is lying in the bed comfortably, no acute distress, awake alert and oriented.. HEENT: Normocephalic. Neck is supple. Pupils reactive. Nostrils clear. Oral cavity is moist. Neck reveals no JVD, carotid bruits, or thyromegaly. CHEST EXAMINATION: Trachea is central. Symmetrical expansion. Lung venegas clear to auscultation and percussion. CARDIAC: Normal S1, S2 with no gallops. No murmurs ABDOMEN: Soft. Bowel sounds present. Nontender. No organomegaly. No abdominal bruits. Right flank tenderness. Extremities: reveal no edema. No clubbing or cyanosis Neurologically awake, alert, oriented x3 with well-coordinated movements. No focal deficits noted Skin: No rash or skin lesions. Psychiatric: Coperative. Nonsuicidal, Musculoskeletal: No joint swelling or deformity. Normal range of motion. Assessment and Plan Assessment Right-sided hydronephrosis 3 to 6 mm renal calculus at the UVJ Renal colicky pain secondary to above Acute urinary tract infection, with negative urine culture Prior history of UTIs Ongoing nicotine addiction DVT prophylaxis with heparin subcu GI prophylaxis Full Code Plan: Patient will be continued on IV hydration pain management with morphine and continue with IV antibiotics in the form of ceftriaxone. Urine culture negative and patient will not require antibiotics on discharge. Continue symptomatic management for nausea and vomiting. Patient is down for urology procedure currently. Smoking cessation has been counseled extensively. Possible DC in the next 24 hours. The impression and plan of care has been dictated by Ashley Allen Nurse Practitioner as directed. Dr. Princess MD I have performed a history and physical examination and medical decision making of this patient, discussed the same with the dictator, and agree with the dictators assessment and plan as written, documented as a scribe. Based on total visit time, I have performed more than 50% of this visit Objective - Vital Signs Vital signs: Vital Signs Temp 97.8 F 07/20/22 06:48 Pulse 68 07/20/22 06:48 Resp 17 07/20/22 06:48 BP 125/84 07/20/22 06:48 Pulse Ox 100 07/20/22 06:48 FiO2 Intake & Output 07/19/22 07/20/22 07/20/22 18:59 06:59 18:59 Intake Total 1250 Output Total 5 Balance 1245 Intake: IV 1250 Output: Estimated Blood Loss 5 Other: Voiding Method Toilet Toilet # Voids 1 1 - Labs CBC & Chem 7: 07/18/22 07:27 07/18/22 07:27 Assessment and Plan Time with Patient: Less than 30
--- NOTE | 2022-07-22 17:46 | P.DS ---
Providers Date of admission: 07/17/22 14:12 Attending physician: Brian Simons Consults: 07/17/22 14:06 Consult Physician Urgent Consulting Provider: Beka Lai Consult Reason/Comments: hydroureteronephrosis, calculus at the right UVJ Do you want consulting provider notified?: Yes Primary care physician: [facility] Course: Final Diagnosis Right-sided hydronephrosis 3 to 6 mm renal calculus at the UVJ Renal colicky pain secondary to above Postoperative day #1 cystoscopy right ureteroscopy, holmium laser stone basketing Acute urinary tract infection, with negative urine culture Prior history of UTIs Ongoing nicotine addiction Full Code Discharge Disposition patient is stable for discharge home. Cleared by urology. Reports improvement in right sided flank pain. Recommend to continue vitamin support, discharged on amlodipine 2.5 mg po daily for elevated blood pressure. Instructed to monitor blood pressure and discontinue if blood pressure stays below 130s systolic. Rec ommend to follow up with primary care in 1 to 2 days. Recommend to follow up with Dr. Lai in 1 week. Hospital Course Patient is a 41-year-old male with no significant past medical history presents to ER with complaints of nausea vomiting abdominal pain. Patient states that she started having right flank pain on around 4 AM. Since then patient has been having on and off episodes of nausea and vomiting and also abdominal pain around the umbilical area. Patient has been having multiple episodes of nausea vomiting and presented to ER. No prior history of renal stones. Patient had prior UTI and hospital admission about a year ago. Patient does smoke on daily basis currently. CT of the abdomen pelvis showed moderate right-sided hydronephrosis secondary to 6 mm calculus at the right UVJ Laboratory data showed WBC 20.6 hemoglobin 13.7 and platelets 308 Patient was evaluated by urology and underwent cystoscopy with right ureteroscopy and holmium laser stone basketing. Symptoms have improved and patient is urinating without difficulty. She is discharged on ditropan daily. White count has improved down to 9.54. Urine culture is negative patient will not require antibiotics on discharge. Patient will be discharged home today. 07/20/2022 Patient is sitting up in bed today. She is postoperative day #1. Reports no flank pain. Overall she is feeling much better. Urology has cleared patient for discharge home today. She will continue on ditropan. Denies chest pain, denies shortness of breath. Denies nausea, vomiting, denies diarrhea. Lungs are clear, s1 s2 auscultated, abdomen is soft and nontender, no CVA tenderness. Alert x 3 focal neurological exam is negative. White count has normalized. She remains afebrile. Blood pressure stable. Patient will be discharged home. Thank you for allowing us to participate in the care of this patient. Please see medication reconciliation for a list of current medication. The impression and plan of care has been dictated by Ashley Allen, Nurse Practitioner as directed. Dr. Princess MD I have performed a history and physical examination and medical decision making of this patient, discussed the same with the dictator, and agree with the dictators assessment and plan as written, documented as a scribe. Based on total visit time, I have performed more than 50% of this visit. Plan - Discharge Summary Discharge Rx Participant: No New Discharge Prescriptions: New Oxybutynin ER [Ditropan Xl] 10 mg PO DAILY #30 tab amLODIPine [Norvasc] 2.5 mg PO DAILY #30 tab Famotidine [Pepcid] 20 mg PO DAILY #30 tab Ibuprofen [Motrin] 600 mg PO Q8HR PRN #30 tab PRN Reason: Pain Acetaminophen Tab [Tylenol] 650 mg PO Q6HR PRN tab PRN Reason: Mild Pain Or Fever > 100.5 Continue Multivitamins, Thera [Multivitamin (formulary)] 1 tab PO DAILY Cranberry Fruit Extract [Cranberry] 500 mg PO DAILY Discharge Medication List Multivitamins, Thera [Multivitamin (formulary)] 1 tab PO DAILY 10/12/19 [History] Cranberry Fruit Extract [Cranberry] 500 mg PO DAILY 07/17/22 [History] Acetaminophen Tab [Tylenol] 650 mg PO Q6HR PRN tab 07/20/22 [Rx] Famotidine [Pepcid] 20 mg PO DAILY #30 tab 07/20/22 [Rx] Ibuprofen [Motrin] 600 mg PO Q8HR PRN #30 tab 07/20/22 [Rx] Oxybutynin ER [Ditropan Xl] 10 mg PO DAILY #30 tab 07/20/22 [Rx] amLODIPine [Norvasc] 2.5 mg PO DAILY #30 tab 07/20/22 [Rx] Follow up Appointment(s)/Referral(s): Beka Lai MD [STAFF PHYSICIAN] - 1 Week Breezy Brady DO [Primary Care Provider] - 1-2 days Patient Instructions/Handouts: *Surgery [facility] - Scopalamine Patch Instructions Activity/Diet/Wound Care/Special Instructions: - Increase fluid intake - Follow up with Dr. Lai in one week Discharge Disposition: HOME SELF-CARE
== END 2022-07-20 11:53 | disposition home or self-care (01) ==
LOC: EC 09:12 → 6NMEDSUR 14:12
PROVIDERS: ADMIT Internal Medicine; ATTEND Internal Medicine
DX: N13.6 Pyonephrosis (principal); D72.829 Elevated white blood cell count, unspecified; F17.200 Nicotine dependence, unspecified, uncomplicated; Z87.440 Personal history of urinary (tract) infections; Z87.442 Personal history of urinary calculi
CPT/HCPCS: 96365; 96366; 96372 ×4; 96376 ×4; 96361; 96375; 99285; 36415; 81025 ×2; 80053; 80048; 82150; 83690; 84484; 85025 ×2; 81001; 82365; 87086; 74177; 52353; G0378 ×4; C1769; J0500; J1100; J2405 ×2; J0696 ×4; J3010; J2270 ×3; J1885 ×4; J2704; Q9967; J1644 ×4; J2001

== ENCOUNTER → 2022-11-16 | Outpatient (CLI) | payer BC ==
--- NOTE | 2022-11-16 13:22 | US ---
EXAMINATION TYPE: US axilla LT DATE OF EXAM: 11/16/2022 COMPARISON: NONE CLINICAL HISTORY: R59.0 ENLARGED LYMPHNODE. Left axilla lump. TECHNIQUE: Multiple grayscale and color Doppler ultrasound images of the left axilla were obtained. FINDINGS/IMPRESSION: No solid or cystic lesion demonstrated within the left axilla. No lymphadenopat hy demonstrated. No ultrasound findings correspond to patient's symptomology.
--- NOTE | 2022-11-17 17:58 | MM ---
Reason for Exam: Screening (asymptomatic). Last mammogram was performed 5 year(s) and 10 month(s) ago. Patient History: Menarche at age 12. First Full-Term at age 33. Late child-bearing (after 30). Premenopausal. Currently using Hormonal Contraceptives, beginning at age 17 for 5 years. Risk Values: Jill 5 year model risk: 0.8%. NCI Lifetime model risk: 13.5%. Prior Study Comparison: 06/01/2010 Bilateral Diagnostic Mammogram, [facility]. 02/02/2017 Bilateral Screening Mammogram, [facility]. Tissue Density: The breast tissue is heterogeneously dense. This may lower the sensitivity of mammography. Findings: Analyzed By CAD. There is no suspicious group of microcalcifications or new suspicious mass in either breast. Overall Assessment: Negative, BI-RAD 1 Management: Screening Mammogram of both breasts in 1 year. 1. Patient should continue monthly self breast exams. 2. A clinical breast exam by your physician is recommended on an annual basis. 3. This exam should not preclude additional follow-up of suspicious palpable abnormalities. Electronically signed and approved by: Steve Chaves M.D. Radiologist
== END | disposition home or self-care (01) ==
LOC: RADUSWWP 12:55
PROVIDERS: ATTEND Family Medicine
DX: Z12.31 Encounter for screening mammogram for malignant neoplasm of breast (principal); R59.0 Localized enlarged lymph nodes
CPT/HCPCS: 77063; 77067